=== PATIENT | female | born 1990 | race Caucasian/White ===

== ENCOUNTER → 2017-05-16 | Outpatient (CLI) | payer MEDICAID ==
[~2017-05-16] MED LIST: APAP/BUTALBITAL1 TA1 PO; BACTRIM DS 8001 TAB PO; CIPRO 500MG TA500 MG PO; CLINDAMYCIN300 MG PO; FLINTSTONES COM1 CTB PO; FLUOXETINE10 MG PO; KEFLEX 500MG.500 MG PO; LORTAB 500 MG-71 TAB PO; MOTRIN 400MG.400 MG PO; PERCOCET 5/3251 EACH PO; PHENERGAN VC +120 ML PO; TAMIFLU75 MG PO; XANAX 1MG TABLET1 MG PO
[2017-05-16 15:56] LABS: LYMPH # 2.1 K/mm3 (0.7-4.5); LYMPH % 25.6 % (10-50.0)
[2017-05-16 16:15] LABS: HEMOGLOBIN 13.4 g/dL (12.2-16.2)
[2017-05-16 17:32] LABS: FREE THYROXIN INDEX 5.4 ug/dl (5.93-13.13)
== END ==
LOC: LAB 15:41
PROVIDERS: Nurse Practitioner Obstetrics & Gynecology
DX: R53.82 Chronic fatigue, unspecified (principal); Z32.00 Encounter for pregnancy test, result unknown; R35.0 Frequency of micturition